=== PATIENT | female | born 1950 | race Caucasian/White ===

== ENCOUNTER 2018-05-08 09:12 | Day surgery (SDC) | payer OTHER, BC ==
[~2018-05-08] VITALS: Ht 157.5 cm; Wt 134.0 kg
[~2018-05-08 09:12] MED LIST: ACIPHEX20 MG PO; ALLEGRA ALLERG180 MG PO; BYSTOLIC10 MG PO; CARDIZEM CD,CA240 MG PO; EPIPEN ADU0.3 MG/0.3 IM; GLUCOTROL XL2.5 MG PO; HYZAAR 100-21 TABLET PO; IPRATROPIUM BRO15 ML BOTH NARES; MAXAIR AUTOHALER IH; OXYBUTYNIN CHLOR5 M1 PO
[2018-05-08 11:00] VITALS: BP 143/66
[2018-05-08 13:20] VITALS: BP 141/67
[2018-05-08 14:00] VITALS: BP 137/65
== END 2018-05-08 14:00 | disposition home or self-care (01) ==
LOC: SDC 09:12
PROVIDERS: Internal Medicine
PROC: 08B43ZZ Excision of Right Vitreous, Percutaneous Approach (ICD-10-PCS; principal; 2018-05-08)
PROC: 08NE3ZZ Release Right Retina, Percutaneous Approach (ICD-10-PCS; principal; 2018-05-08)
DX: H35.341 Macular cyst, hole, or pseudohole, right eye (principal); I10 Essential (primary) hypertension; E11.9 Type 2 diabetes mellitus without complications; K21.9 Gastro-esophageal reflux disease without esophagitis; J45.909 Unspecified asthma, uncomplicated; Z79.84 Long term (current) use of oral hypoglycemic drugs; Z88.0 Allergy status to penicillin; Z88.8 Allergy status to other drugs, medicaments and biological substances
CPT/HCPCS: 82948; J0690; J3300; J3370